=== PATIENT | female | born 1965 | race African-American/Black ===

== ENCOUNTER → 2018-07-25 | Outpatient (CLI) | payer BC ==
--- NOTE | 2018-07-25 09:58 | 2DMMODE ---
[facility] [employer] [place] [address] 2 D/M-MODE ECHOCARDIOGRAM Name: KARISHMAMEJIA Room #: REG [facility]#: [id number] ������������� Admission: 07/25/18 ������������� Attend Phys: Lino Watkins Discharge: ��� ������������� ��� Date of : 67 Date of Service: 07/25/18 0957 �� Report #: [id number] �������� ��������������������������������������������[id number] THIS REPORT FOR: //name// APPROVED REPORT Study performed: 07/25/2018 09:29:37 EXAM: Comprehensive 2D, Doppler, and color-flow Echocardiogram Patient Location: Out-Patient Status: routine BSA: 1.81 HR: 73 bpm BP: 166/100 mmHg Rhythm: NSR Other Information Study Quality: Good Indications Abnormal EKG. 2D Dimensions RVDd: 29.87 mm IVSd: 11.22 (7-11mm) LVOT Diam: 19.95 (18-24mm) LVDd: 51.44 mm PWd: 10.90 (7-11mm) Ascending Ao: 28.87 (22-36mm) LVDs: 34.55 (25-40mm) Aortic Root: 33.47 mm Volumes Left Atrial Volume (Systole) Single Plane 4CH: 35.54 mL Single Plane 2CH: 40.41 mL LA ESV Index: 23.00 mL/m2 Aortic Valve AoV Peak Arthur.: 1.29 m/s AO Peak Gr.: 6.68 mmHg LVOT Max P.49 mmHg LVOT Max V: 0.93 m/s AMARILYS Vmax: 2.26 cm2 Mitral Valve E/A Ratio: 0.9 MV Decel. Time: 229.58 ms MV E Max Arthur.: 0.77 m/s [facility] [address] [place] [address] 2 D/M-MODE ECHOCARDIOGRAM Name: MEJIA SCHWARZ [facility] Room #: REG [facility]#: [id number] ������������� Admission: 07/25/18 ������������� Attend Phys: Lino Watkins Discharge: ��� ������������� ��� Date of : 67 Date of Service: 07/25/18 0957 �� Report #: [id number] �������� ��������������������������������������������[id number] MV A Arthur.: 0.89 m/s MV PHT: 66.58 ms IVRT: 103.81 ms Pulmonary Valve PV Peak Arthur.: 0.86 m/s PV Peak Gr.: 2.97 mmHg Pulmonary Vein P Vein S: 0.39 m/s P Vein D: 0.28 m/s P Vein S/D Ratio: 1.39 Tricuspid Valve TR Peak Arthur.: 1.84 m/s RAP Estimate: 5.00 mmHg TR Peak Gr.: 13.48 mmHg PA Pressure: 18.00 mmHg Left Ventricle The left ventricle is normal size. There is normal LV segmental wall motion. Borderline concentric left ventricular hypertrophy. Left ventricular systolic function is normal. LVEF is 55-60%. Mild diastolic dysfunction is present (impaired relaxation pattern). Right Ventricle The right ventricle is normal size. The right ventricular systolic function is normal. Atria The left atrium size is normal. The atrial septum is aneurysmal. No shunting noted with color doppler. The right atrium size is normal. Aortic Valve The aortic valve is normal in structure. No aortic regurgitation is present. There is no aortic valvular stenosis. Mitral Valve The mitral valve is normal in structure. Trace to mild mitral regurgitation. No evidence of mitral valve stenosis. Tricuspid Valve The tricuspid valve is normal in structure. Trace tricuspid regurgitation. Estimated PAP is 20mmHg. Pulmonic Valve [facility] [address] [place] [address] 2 D/M-MODE ECHOCARDIOGRAM Name: MEJIA SCHWARZ [facility] Room #: REG [facility].#: [id number] ������������� Admission: 07/25/18 ������������� Attend Phys: Lino Watkins Discharge: ��� ������������� ��� Date of : 67 Date of Service: 07/25/18 0957 �� Report #: [id number] �������� ��������������������������������������������[id number] The pulmonary valve is normal in structure. Mild pulmonic regurgitation. Great Vessels The aortic root is normal in size. The ascending aorta is normal in size. IVC is normal in size and collapses >50% with inspiration. Pericardium There is no pericardial effusion. <Conclusion> The left ventricle is normal size. LVEF is 55-60%. The left atrium size is normal. The aortic valve is normal in structure. The tricuspid valve is normal in structure. Trace tricuspid regurgitation. Estimated PAP is 20mmHg. The pulmonary valve is normal in structure. There is no pericardial effusion. The atrial septum is aneurysmal. No shunting noted with color doppler. ��������������������������������������������� <ELECTRONICALLY SIGNED> ���������������������������������������� By: Ian Ramirez MD ��������������������������������������������� 07/25/18 0957 0957 0957 Ian Ramirez MD /INF
--- NOTE | 2018-07-25 10:55 | EXE ---
[facility] [employer] [place] [address] STRESS ECHOCARDIOGRAM Name: KARISHMAMEJIA GRUPO Room #: REG [facility]#: [id number] ������������� Admission: 07/25/18 ������������� Attend Phys: Lino Watkins Discharge: ��� ������������� ��� Date of : 67 Date of Service: 07/25/18 1055 �� Report #: [id number] �������� ��������������������������������������������[id number] THIS REPORT FOR: //name// APPROVED REPORT Study performed: 07/25/2018 09:55:25 Exam: Stress Echocardiogram Indication: Abnormal EKG Patient Location: Out-Patient Stress Nurse: Fanny Robertson RN Status: routine Ht: 5 ft 5 in HR: 75 bpm BP: 166/100 mmHg Rhythm: NSR Medical History Allergies: No known drug allergies Cardiac Risk Factors: None Procedure The patient underwent an Exercise Stress Test using the Sean Protocol. Blood pressure, heart rate, and EKG were monitored. An Echocardiogram was performed by dye penetrant testing technician in four stages in quad fashion. At peak stress, four selected images were obtained and placed side by side with resting images for comparison. Stress Test Details Stress Test: Exercise stress testing was performed using a Sean protocol. HR Resting HR: 75 bpm Max Heart Rate (APMHR): 168 bpm Max HR Achieved: 171 bpm Target HR (85% APMHR): 142 bpm % of APMHR: 101 Recovery HR: 93 bpm HR response to stress: Normal HR response to stress BP Resting BP: 166/100 mmHg Max BP: 210/100 mmHg Recovery BP: 200/100 mmHg BP response to stress: Abnormal hypertensive response to stress. ECG [facility] [address] [place] [address] STRESS ECHOCARDIOGRAM Name: MEJIA SCHWARZ GRUPO Room #: REG [facility]#: [id number] ������������� Admission: 07/25/18 ������������� Attend Phys: Lino Watkins Discharge: ��� ������������� ��� Date of : 67 Date of Service: 07/25/18 1055 �� Report #: [id number] �������� ��������������������������������������������[id number] Clinical Reason for Termination: Completed protocol, Maximal effort Stress Symptoms: Dyspnea, Fatigue Exercise duration: 9 min 30 sec Highest Stage Achieved: Stage 4: 4.2 mph at 16% grade. Exercise capacity: 11.60 METs Stress ECG Conclusion 1. Subjectively negative for ischemia 2. Electrocardiographically negative for ischemia 3. Satisfactory functional capacity Pre-Stress Echo The resting Echocardiogram showed normal left ventricular contractility with an estimated Ejection Fraction of about 55-60%. No significant valvular abnormalities noted. Post-Stress Echo The stress Echocardiogram showed normal left ventricular contractility with an estimated Ejection Fraction of about 65%. Normal augmentation of wall motion in all segments on post stress images. Conclusion Clinical Response: Non-ischemic Exercise Capacity: Average Stress ECG Response: Non-ischemic Stress Echo Images: Non-ischemic 1. Low risk study Other Information Study Quality: Adequate <Conclusion> 1. Low risk study ��������������������������������������������� <ELECTRONICALLY SIGNED> ���������������������������������������� By: Ian Ramirez MD ��������������������������������������������� 07/25/18 1055 1055 1055 Ian Ramirez MD /INF
== END ==
LOC: CV 08:00
DX: I51.7 Cardiomegaly (principal)

== ENCOUNTER → 2018-07-25 | Outpatient (CLI) | payer BC | LOC: RAD 14:39 | DX: J45.909 Unspecified asthma, uncomplicated (principal); R59.0 Localized enlarged lymph nodes; D86.9 Sarcoidosis, unspecified; R06.00 Dyspnea, unspecified ==

== ENCOUNTER → 2018-08-04 | Outpatient (CLI) | payer BC | LOC: CAT 08:24 | DX: R91.8 Other nonspecific abnormal finding of lung field (principal) ==